=== PATIENT | female | born 1945 | race Two or more races ===

== ENCOUNTER 2021-01-22 11:24 | Emergency (ER) | payer OTHER ==
[~2021-01-22] VITALS: Ht 149.9 cm; Wt 77.1 kg
[2021-01-22 11:36] VITALS: BP 154/81
[2021-01-22] MEDS ORDERED: ACETAMINOPHEN 500 MG TAB PO ONE (14:30)
== END 2021-01-22 15:22 | disposition home or self-care (01) ==
LOC: EDBD 11:24 → ER 11:24
DX: M23.92 Unspecified internal derangement of left knee (principal); M25.462 Effusion, left knee; E11.9 Type 2 diabetes mellitus without complications
CPT/HCPCS: 73562; 82962; 93971

== ENCOUNTER 2022-07-26 17:44 | Inpatient (IN) | payer OTHER ==
[~2022-07-26] VITALS: Ht 149.9 cm; Wt 80.8 kg
[2022-07-26 19:47] LABS: Basophils # (auto) 0 10 ^3/uL (0-0.2); Basophils % (auto) 0.4 % (0.0-2.0); Eosinophils # (auto) 0.1 10 ^3/uL (0-0.8); Hemoglobin 14.8 g/dL (12.2-16.2); Lymphocytes # (auto) 1.3 10 ^3/uL (0.4-5.4); Lymphocytes % (auto) 15.6 % (10.0-50.0); Mean Corpuscular Hemoglobin 29.5 pg (28.0-32.0); Mean Corpuscular Hgb Conc. 32.9 g/dL (32.0-36.0); Mean Corpuscular Volume 89.6 fL (80.0-100.0); Monocytes # (auto) 0.4 10 ^3/uL (0-1.3); Neutrophils # (auto) 6.3 10 ^3/uL (1.6-8.6); Red Blood Cells 5.02 10^6/uL (4.0-5.20); Red Cell Distribution Width 13.4 % (11.8-14.3); White Blood Cell 8.1 10^3/uL (4.4-10.8)
[2022-07-26 20:07] LABS: Calcium 9.7 mg/dL (8.5-10.1); Potassium 4.7 mmol/L (3.5-5.1)
[2022-07-26 20:10] LABS: BUN/Creatinine Ratio 31.9
[2022-07-26 20:13] LABS: Bilirubin, Total 0.5 mg/dL (0.2-1.0); Total Protein 7.4 g/dL (6.4-8.2)
[2022-07-26 20:21] LABS: Thyroid Stimulating Hormone 2.2 uIU/mL (0.358-3.74)
[2022-07-26] MEDS ORDERED: MORPHINE SULFATE INJ 2 MG/ml SYRG IV PRN (21:45)
[2022-07-26] MEDS ORDERED: NITROGLYCERIN 0.4 MG SL TAB SL PRN (21:45)
[2022-07-26] MEDS ORDERED: DEXTROSE (50%) 50ML SYRG IV PRN (22:15)
[2022-07-26] MEDS ORDERED: MIRA25TA PO (22:27)
[2022-07-26] MEDS ORDERED: DONE5TAB80 PO (22:27)
[2022-07-26] MEDS ORDERED: LOSA-69 PO (22:27)
[2022-07-26] MEDS ORDERED: SIMV-8 PO (22:27)
[2022-07-26] MEDS ORDERED: hydrALAZINE HCL 20 MG/ML VL IV PRN (22:45)
[2022-07-26 22:52] LABS: INR 1.08 (0.9-1.15); Partial Thromboplastin Time 28.4 sec (24.6-33.4)
[2022-07-26] MEDS: SODIUM CHLORIDE 0.9% 1,000 ML IV SCH (23:49)
[2022-07-26] MEDS: InsuLIN REG 1unit/0.01ml Soln (100units/ml) SC SCH (23:49)
[2022-07-27] MEDS: ACCU-CHEK COMFORT CURVE STRIP VI SCH ×4 (00:03→18:00)
[2022-07-27] MEDS: SODIUM CHLORIDE 0.9% 1,000 ML IV SCH (00:36)
[2022-07-27 04:33] LABS: Basophils # (auto) 0 10 ^3/uL (0-0.2); Basophils % (auto) 0.3 % (0.0-2.0); Eosinophils # (auto) 0 10 ^3/uL (0-0.8); Hematocrit 43.6 % (36.0-46.0); Hemoglobin 14.3 g/dL (12.2-16.2); Lymphocytes % (auto) 12.2 % (10.0-50.0); Mean Corpuscular Hemoglobin 29.3 pg (28.0-32.0); Mean Corpuscular Hgb Conc. 32.8 g/dL (32.0-36.0); Mean Corpuscular Volume 89.2 fL (80.0-100.0); Monocytes # (auto) 0.1 10 ^3/uL (0-1.3); Monocytes % (auto) 1.6 % (0.0-12.0); Neutrophils # (auto) 6.8 10 ^3/uL (1.6-8.6); Neutrophils % (auto) 85.9 % (37.0-80.0); Nucleated Red Blood Cells % 0.1 %; Red Blood Cells 4.88 10^6/uL (4.0-5.20); Red Cell Distribution Width 13.1 % (11.8-14.3); White Blood Cell 7.9 10^3/uL (4.4-10.8)
[2022-07-27 04:53] LABS: Potassium 4.7 mmol/L (3.5-5.1)
[2022-07-27 04:59] LABS: Albumin 3.7 g/dL (3.4-5.0); BUN/Creatinine Ratio 32.6; Calcium 9.4 mg/dL (8.5-10.1)
[2022-07-27 05:01] LABS: Bilirubin, Total 0.6 mg/dL (0.2-1.0); Total Protein 6.8 g/dL (6.4-8.2)
[2022-07-27] MEDS: InsuLIN REG 1unit/0.01ml Soln (100units/ml) SC SCH ×3 (06:35→18:00)
[2022-07-27] MEDS: MIRABEGRON 25 MG PO SCH (10:00)
[2022-07-27] MEDS ORDERED: DONEPEZIL HYDROCHLORIDE 5 MG TAB PO SCH (10:00)
[2022-07-27] MEDS ORDERED: ENOXAPARIN SOD 40 MG/0.4 ML SYRINGE SC SCH (10:00)
[2022-07-27 10:09] LABS: Cholesterol 156 mg/dL (< 200)
[2022-07-27 10:11] LABS: HDL Cholesterol 70 mg/dL (40-59); LDL Cholesterol 83 mg/dL (< 100); Triglycerides 46 mg/dL (< 150)
[2022-07-27 10:57] LABS: Urine Bacteria NONE SEEN /hpf (None Seen); Urine Blood Negative /uL (Negative)
[2022-07-27 10:59] LABS: Urine WBC 82 /hpf (0 - 5)
[2022-07-27] MEDS: LOSARTAN POTASSIUM 50 MG TAB PO SCH (11:01)
[2022-07-27] MEDS ORDERED: cefTRIAXone 1GM/50ML D5W 50 ML IV ONE (11:30)
[2022-07-27] MEDS ORDERED: ACETAMINOPHEN 325 MG TAB PO ONE (18:45)
[2022-07-27] MEDS: PRAVASTATIN SODIUM 20 MG TAB PO SCH (22:43)
[2022-07-28] VITALS (8 sets, daily range): BP systolic 141–171; BP diastolic 66–85
[2022-07-28] MEDS: InsuLIN REG 1unit/0.01ml Soln (100units/ml) SC SCH ×5 (00:52→23:49)
[2022-07-28] MEDS: SODIUM CHLORIDE 0.9% 1,000 ML IV SCH ×3 (01:10→22:36)
[2022-07-28] MEDS ORDERED: LORazepam 2MG/ML-1ML VIAL IM ONE (03:45)
[2022-07-28] MEDS: ACCU-CHEK COMFORT CURVE STRIP VI SCH ×5 (06:16→23:45)
[2022-07-28] MEDS ORDERED: cefTRIAXone 1GM/50ML D5W 50 ML IV SCH (09:00)
[2022-07-28] MEDS: MIRABEGRON 25 MG PO SCH (10:00)
[2022-07-28] MEDS: LOSARTAN POTASSIUM 50 MG TAB PO SCH (10:30)
[2022-07-28] MEDS ORDERED: VANCOMYCIN 1GM/250ML 250 ML IV ONE (13:35)
[2022-07-28] MEDS ORDERED: fentaNYL CITRATE 100 MCG/2 ML VL ONE ×2 (14:03→14:46)
[2022-07-28] MEDS ORDERED: ceFAZolin 1GM VL ONE (14:03)
[2022-07-28] MEDS ORDERED: MIDAZOLAM HCL 2MG/2ML 2ml VIAL (1mg/ml) ONE ×2 (14:04→14:46)
[2022-07-28] MEDS ORDERED: IODIXANOL 320MG/ML 100ML BTL IV ONE (14:43)
[2022-07-28] MEDS ORDERED: LIDOCAINE 2%HCL (LOCAL ANESTH.) INJ 10ml MDV ONE (14:46)
[2022-07-28] MEDS ORDERED: LIDOCAINE 2%HCL (LOCAL ANESTH.) INJ 20ML MDV ONE (14:49)
[2022-07-28] MEDS ORDERED: NITROGLYCERIN 0.4 MG SL TAB SL PRN (17:00)
[2022-07-28] MEDS ORDERED: MORPHINE SULFATE INJ 2 MG/ml SYRG IV PRN (17:00)
[2022-07-28] MEDS ORDERED: ACETAMINOPHEN 500 MG TAB PO PRN (18:30)
[2022-07-28] MEDS: SODIUM CHLOR 0.9% PF (SALINE LOCK) 10ML VIAL/SYR IV SCH (21:52)
[2022-07-28] MEDS: PRAVASTATIN SODIUM 20 MG TAB PO SCH (21:56)
[2022-07-29 05:00] VITALS: BP 150/90
[2022-07-29] MEDS: ACCU-CHEK COMFORT CURVE STRIP VI SCH ×4 (05:22→23:53)
[2022-07-29] MEDS: InsuLIN REG 1unit/0.01ml Soln (100units/ml) SC SCH ×4 (05:23→23:49)
[2022-07-29] MEDS: SODIUM CHLOR 0.9% PF (SALINE LOCK) 10ML VIAL/SYR IV SCH (05:23)
[2022-07-29] MEDS ORDERED: LORazepam 0.5 MG TAB PO PRN (05:30)
[2022-07-29 09:00] VITALS: BP 141/85
[2022-07-29] MEDS: LOSARTAN POTASSIUM 50 MG TAB PO SCH (09:39)
[2022-07-29] MEDS: MIRABEGRON 25 MG PO SCH (10:00)
[2022-07-29 10:35] LABS: Albumin 3.4 g/dL (3.4-5.0); Calcium 8.5 mg/dL (8.5-10.1)
[2022-07-29 10:38] LABS: BUN/Creatinine Ratio 24.4; Total Protein 7.1 g/dL (6.4-8.2)
[2022-07-29 13:00] VITALS: BP 125/85
[2022-07-29 13:58] LABS: Hematocrit 45.3 % (36.0-46.0); Mean Corpuscular Hemoglobin 29.5 pg (28.0-32.0); Mean Corpuscular Hgb Conc. 33.2 g/dL (32.0-36.0); Red Blood Cells 5.09 10^6/uL (4.0-5.20); Red Cell Distribution Width 13.1 % (11.8-14.3)
[2022-07-29 14:01] LABS: Basophils % (manual) 0 (0.0-2.0); Blast Cells 0; Eosinophils % (manual) 0 (0-7); Metamyelocytes % 0; Myelocytes % 0; Promyelocytes % 0; Reactive Lymphocytes 0
[2022-07-29 14:37] LABS: Band Neutrophils % (manual) 9; Lymphocytes % (manual) 16 (10.0-50.0); Monocytes % (manual) 8 (0-12)
[2022-07-29 17:00] VITALS: BP 127/74
[2022-07-29 20:10] VITALS: BP 123/79
[2022-07-29] MEDS: PRAVASTATIN SODIUM 20 MG TAB PO SCH (21:30)
[2022-07-29 22:00] VITALS: BP 123/79
[2022-07-29] MEDS ORDERED: DONEPEZIL HYDROCHLORIDE 5 MG TAB PO SCH (22:00)
[2022-07-30 05:00] VITALS: BP 131/68
[2022-07-30 06:29] LABS: Albumin 3.2 g/dL (3.4-5.0); Calcium 8.6 mg/dL (8.5-10.1); Potassium 3.8 mmol/L (3.5-5.1)
[2022-07-30 06:32] LABS: BUN/Creatinine Ratio 23.9; Bilirubin, Total 0.8 mg/dL (0.2-1.0); Total Protein 7.1 g/dL (6.4-8.2)
[2022-07-30] MEDS: InsuLIN REG 1unit/0.01ml Soln (100units/ml) SC SCH ×2 (06:46→12:25)
[2022-07-30] MEDS: ACCU-CHEK COMFORT CURVE STRIP VI SCH ×2 (06:48→12:07)
[2022-07-30 07:59] LABS: Basophils # (auto) 0.1 10 ^3/uL (0-0.2); Basophils % (auto) 0.8 % (0.0-2.0); Eosinophils # (auto) 0 10 ^3/uL (0-0.8); Eosinophils % (auto) 0.5 % (0.0-7.0); Hematocrit 48.1 % (36.0-46.0); Hemoglobin 15.7 g/dL (12.2-16.2); Lymphocytes # (auto) 1.9 10 ^3/uL (0.4-5.4); Lymphocytes % (auto) 21.6 % (10.0-50.0); Mean Corpuscular Hemoglobin 29.1 pg (28.0-32.0); Mean Corpuscular Hgb Conc. 32.7 g/dL (32.0-36.0); Monocytes # (auto) 0.8 10 ^3/uL (0-1.3); Monocytes % (auto) 9.4 % (0.0-12.0); Neutrophils # (auto) 5.8 10 ^3/uL (1.6-8.6); Neutrophils % (auto) 67.7 % (37.0-80.0); Nucleated Red Blood Cells % 0.2 %; Red Cell Distribution Width 13.3 % (11.8-14.3); White Blood Cell 8.6 10^3/uL (4.4-10.8)
[2022-07-30 09:00] VITALS: BP 114/79
[2022-07-30] MEDS: MIRABEGRON 25 MG PO SCH (10:18)
[2022-07-30] MEDS: LOSARTAN POTASSIUM 50 MG TAB PO SCH (10:20)
[2022-07-30 13:00] VITALS: BP 99/67
[2022-07-30] MEDS ORDERED: METOPROLOL SUCCINATE XL 50 MG TAB PO ONE (13:15)
[2022-07-30] MEDS ORDERED: METO25TA93 PO ×3 (13:18→13:56)
[2022-07-30 13:19] VITALS: BP 99/67
== END 2022-07-30 16:00 | disposition home health service (06) | DRG 243 ==
LOC: ER 17:44 → EDBD 17:44 → OVERFLOW 22:15 → TELE 07-28 15:29 → TELE-CENTR 07-28 18:14
PROVIDERS: ADMIT Registered Nurse; ATTEND Internal Medicine
PROC: 0JH606Z Insertion of Pacemaker, Dual Chamber into Chest Subcutaneous Tissue and Fascia, Open Approach (ICD-10-PCS; principal; 2022-07-28)
PROC: 02H63JZ Insertion of Pacemaker Lead into Right Atrium, Percutaneous Approach (ICD-10-PCS; 2022-07-28)
PROC: 02HK3JZ Insertion of Pacemaker Lead into Right Ventricle, Percutaneous Approach (ICD-10-PCS; 2022-07-28)
DX: I44.2 Atrioventricular block, complete (principal); N39.0 Urinary tract infection, site not specified; E11.9 Type 2 diabetes mellitus without complications; E66.01 Morbid (severe) obesity due to excess calories; I10 Essential (primary) hypertension; Z20.822 Contact with and (suspected) exposure to COVID-19; F03.90 Unspecified dementia, unspecified severity, without behavioral disturbance, psychotic disturbance, mood disturbance, and anxiety; E78.5 Hyperlipidemia, unspecified; K21.9 Gastro-esophageal reflux disease without esophagitis; R00.1 Bradycardia, unspecified; F41.9 Anxiety disorder, unspecified; Z68.34 Body mass index [BMI] 34.0-34.9, adult; Z86.73 Personal history of transient ischemic attack (TIA), and cerebral infarction without residual deficits; Z79.4 Long term (current) use of insulin
CPT/HCPCS: 36415; 71045; 80053; 80061; 81001; 82962; 83036; 83880; 84443; 84484; 84702; 85007; 85025; 85027; 85610; 85730; 87426; 93005; 93306; 96365; 96372; 99152; 99153; 99291; C1785; G0378; J0690; J0696; J1815; J2001; J2250; Q9967